=== PATIENT | female | born 1975 | race Caucasian/White ===

== ENCOUNTER 2017-05-15 13:15 | Emergency (ER) | payer OTHER ==
[~2017-05-15] VITALS: Ht 167.6 cm; Wt 79.5 kg
[2017-05-15 13:15] VITALS: BP 124/73; PULSE 91; TEMP 98.1
== END 2017-05-15 14:02 | disposition left against medical advice (07) ==
LOC: COL.ER 13:15
DX: R10.9 Unspecified abdominal pain (principal); Z90.49 Acquired absence of other specified parts of digestive tract; Z90.89 Acquired absence of other organs; Z98.890 Other specified postprocedural states

== ENCOUNTER → 2020-06-29 | Outpatient (CLI) | payer BC, OTHER | LOC: COL.RAD 07:15 | DX: K90.9 Intestinal malabsorption, unspecified (principal); M79.89 Other specified soft tissue disorders; R18.8 Other ascites; Z98.84 Bariatric surgery status | CPT/HCPCS: Q9967 ==